=== PATIENT | female | born 1950 | race Caucasian/White ===

== ENCOUNTER → 2017-03-24 14:19 | Outpatient (CLI) | payer MEDICARE ==
[2015-12-29 11:03] VITALS: BMI 32.3
[~2017-03-24 14:19] MED LIST: ABILIFY PO; CELEBREX200 MG PO; CELEXA20 MG PO; CLARINEX5 MG PO; DIOVAN160 MG PO; GABAPENTIN100 MG PO; HCTZ25 MG PO; LEVOTHROID88 MCG PO; MOBIC7.5 MG PO; NEXIUM40 MG PO; NORVASC5 MG PO; TRICOR145 MG PO; TYLENOL W/CODEI1 TAB PO; VISTARIL50 MG PO; VITAMIN D50000 UNIT PO
== END | disposition home or self-care (01) ==
LOC: D.MAMMO 02-18 16:00
DX: Z12.31 Encounter for screening mammogram for malignant neoplasm of breast (principal)

== ENCOUNTER → 2018-03-17 12:32 | Outpatient (CLI) | payer MEDICARE ==
[2015-12-29 11:03] VITALS: BMI 32.3
[~2018-03-17 12:32] MED LIST changes: +PROTONIX40 MG PO; +VALIUM 2 MG TAB2 MG PO
== END | disposition home or self-care (01) ==
LOC: D.HCCARDIO 12:30
DX: I20.9 Angina pectoris, unspecified (principal)

== ENCOUNTER 2018-04-02 06:53 | Outpatient (CLI) | payer MEDICARE ==
[~2018-04-02] VITALS: Ht 165.1 cm; Wt 88.6 kg
--- NOTE | ~2018-04-02 | HEMODYNAMI ---
PATIENT:YAMIL CHANDRA MEDICAL RECORD: [id number] : 46 LOCATION:[facility] ADMISSION DATE: 04/02/18 Generatedon:04/02/20189:35 Patient name: YAMIL BAGLEY Patient #: [id number] SSN: : 1950 Date of study: 04/02/2018 Page: Of Hemodynamic Procedure Report Patient Data Patient Demographics Procedure consent was obtained First Name: YAMIL Gender: Female Last Name: MAYI GILL : 1950 VINCENT Age: 67 year(s) Patient #: [id number] Race: Unknown Additional ID: [id number] Contact details [address]: [address] [place] [address] State: [place] City: [place] Zip code: [address] Past Medical History Allergies: No known allergies Admission Admission Data Admission Date: 04/02/2018 Admission Time: 6:53 Procedure Procedure Types Cath Procedure Diagnostic Procedure LHC LHC w/Coronaries Sedation Charges Moderate Sedation up to 15 minutes Procedure Description Procedure Date Procedure Date: 04/02/2018 Procedure Start Time: 9:20 Procedure End Time: 9:35 Procedure Staff Name Function Ari Bullock MD Performing Physician Tamara Mcdonough RT Monitor Mari Cook RN Nurse Rickie Merlos RT Scrub Procedure Data Cath Procedure Fluoroscopy Diagnostic fluoroscopy Total fluoroscopy Time: 2.5 time: 2.5 min min Diagnostic fluoroscopy Total fluoroscopy dose: 452 dose: 452 mGy mGy Contrast Material Contrast Material Type Amount (ml) Isovue 300 53 Entry Location Entry Primary Successful Side Size Upsize Upsize Entry Closure Succes sful Closure Location (Fr) 1 (Fr) 2 (Fr) Remarks Device Remarks Femoral Left 5 Fr Exoseal artery Estimated blood loss: 5 ml Diagnostic catheters Device Type Used For End Catheter Placement MULTIPACK JL 4.0 5Fr Left Coronary catheter Angiography DIAGNOSTIC JL 5 5Fr Left Coronary catheter ([id number]) Angiography MULTIPACK 3DRC 5Fr Right Coronary catheter Angiography MULTIPACK Pigtail 5 Fr LV Angiography catheter Procedure Complications No complications Procedure Medications Medication Administration Route Dosage 0.9% NaCl I.V. 100 ml/hr Oxygen etCO2 Nasal cannula 2 l/min Lidocaine 2% added to field 20 Heparin Flush Bag added to field 2 bags (1000units/500ml NS) Versed I.V. 2 mg Fentanyl I.V. 50 mcg Versed I.V. 2 mg Fentanyl I.V. 50 mcg Versed I.V. 2 mg Fentanyl I.V. 50 mcg Hemodynamics Rest Heart Rate: 68 (bpm) Pressure Samples Time Site Value (mmHg) Purpose Heart Use Rate(bpm) 9:30 LV 128/11,23 EDP 58 9:31 AO 126/72(96) Pullback 75 9:31 LV 128/7,19 Pullback 75 Gradients Valve Time Site 1 Site 2 Mean SEP/DFP Peak To Heart Use (mmHg) (sec/min) Peak Rate (mmHg) (bpm) Aortic 9:31 LV AO 12 19 2 75 128/7,19 126/72(96) Calculations Valve P-P Mean Valve Index Valve Source Name Gradient Area Flow (cm2) Aortic 2 12 2 12 Snapshots Pre Cath Intra NCS Post Cath Vital Signs Time Heart Resp SPO2 etCO2 NIBP (mmHg) Rhythm Pain Sedation Rate (ipm) (%) (mmHg) Status Level (bpm) 9:08:58 73 16 97 33.9 166/87(134) NSR 0 (11) 10(A) , No pain 9:13:22 64 16 96 37.6 139/87(100) NSR 0 (11) 10(A) , No pain 9:17:46 63 17 97 36.9 132/76(92) NSR 0 (11) 10(A) , No pain 9:22:10 64 16 97 34.6 129/81(107) NSR 0 (11) 10(A) , No pain 9:26:33 68 54 98 30 128/80(99) NSR 0 (11) 10(A) , No pain 9:30:53 71 62 98 41.4 126/80(98) NSR 0 (11) 10(A) , No pain 9:35:15 73 29 94 36.9 130/78(107) NSR 0 (11) 10(A) , No pain Medications Time Medication Route Dose Verified Delivered Reason Notes Effe ctiveness by by 9:07:37 0.9% NaCl I.V. 100 Ari Mari used for ml/hr Kobe Cook collar setter 9:07:44 Oxygen etCO2 2 Ari Mari used for Nasal l/min Kobe Cook procedure cannula RN 9:07:50 Lidocaine 2% added 20ml Ari Ari for local to vial Kobe Bullock MD anesthetic field 9:07:55 Heparin Flush added 2 Ari Ari used for Bag to bags Kobe Bullock MD procedure (1000units/500ml field NS) 9:16:55 Versed I.V. 2 mg Ari Mari for Kobe Cook sedation RN 9:17:01 Fentanyl I.V. 50 Ari Mari for mcg Kobe Cook sedation RN 9:23:25 Versed I.V. 2 mg Ari Mari for Kobe Cook sedation RN 9:23:29 Fentanyl I.V. 50 Ari Mari for mcg Kobe Cook sedation RN 9:28:25 Versed I.V. 2 mg Ari Mari for Kobe Cook sedation RN 9:28:39 Fentanyl I.V. 50 Ari Mari for mcg Kobe Cook sedation social economist Log Time Note 8:49:26 Time tracking: Regular hours (M-F 7:00 - 5:00) 8:49:30 Plan of Care:Hemodynamics will remain stable., Cardiac rhythm will remain stable., Comfort level will be maintained., Respiratory function will remain adequate., Patient/ family verbilizes understanding of procedure., Procedure tolerated without complication., Recovers from procedure without complications.. 8:54:44 Mari Cook RN sent for patient. Start room use. 9:01:27 Patient received from Pre/Post Procedure Room to CCL 1 Alert and oriented. Tansferred to table in Supine position. 9:01:28 Warm blankets applied, and alhaji hugger turned on for patient comfort. 9:01:29 Correct patient and procedure confirmed by team. 9:01:30 Signed procedure consent form obtained from patient. 9:01:31 ECG and BP/O2 sat monitors applied to patient. 9:01:32 Full Disclosure recording started 9:07:29 Vital chart was started 9:07:37 0.9% NaCl 100 ml/hr I.V. was administered by Mari Cook RN; used for procedure; 9:07:44 Oxygen 2 l/min etCO2 Nasal cannula was administered by Mari Cook RN; used for procedure; 9:07:50 Lidocaine 2% 20ml vial added to field was administered by Ari Bullock MD; for local anesthetic; 9:07:55 Heparin Flush Bag (1000units/500ml NS) 2 bags added to field was administered by Ari Bullock MD; used for procedure; 9:09:19 Baseline sample Acquired. 9:12:19 Baseline sample Acquired. 9:12:22 Rhythm: sinus rhythm 9:12:39 H&P Date Dictated: 03/06/2018 Within 30 days and on chart., H&P Addendum completed by physician on day of procedure. (MUST COMPLETE FOR ALL OUTPATIENTS). 9:12:41 Pre-procedure instructions explained to patient. 9:12:41 Pre-op teaching completed and patient verbalized understanding. 9:12:43 Family in patients room. 9:12:45 Patient NPO since Midnight. 9:12:51 Patient allergic to No known allergies 9:12:53 Is the patient allergic to Iodine/contrast media? No. 9:12:56 Is patient on blood thinner?No 9:14:13 Patient diabetic? No. 9:14:17 Previous problem with sedation/anesthesia? No ? 9:14:18 Snore? Yes 9:14:19 Sleep apnea? Yes 9:14:20 Deviated septum? No 9:14:22 Opens mouth fully? Yes 9:14:48 Sticks out tongue? Yes 9:14:50 Airway obstruction? No ? 9:14:52 Dentures? No ? 9:14:58 Pre procedure: left dorsailis pedis pulse 2+ Normal; easily identifiable; not easily obliterated 9:15:01 Patient pain scale 0/10 ?. 9:15:06 IV patent on arrival in left forearm with 0.9% NaCl at O. 9:15:08 Lab results completed and on chart. 9:15:12 Left groin area was prepped with chlora-prep and draped in sterile fashion 9:15:13 Alarms reviewed by R. N. 9:15:13 Sharps counted by scrub and verified by R.N. 9:16:08 Final Timeout: patient, procedure, and site verified with staff and physician. All members of the team are in agreement. 9:16:10 Left groin site verified by team. 9:16:13 Fire Safety Assessment: A--An alcohol-based skin anteseptic being used preoperatively., C--Open oxygen or nitrous oxide is being used., D--An ESU, laser, or fiber-optic light is being used. 9:16:15 Physical assessment completed. ASA score P 2 - A patient with mild systemic disease as per Ari Bullock MD. 9:16:18 Sedation plan: IV Moderate Sedation Medication:Versed, Fentanyl 9:16:55 Versed 2 mg I.V. was administered by Mari Cook RN; for sedation; 9:17:01 Fentanyl 50 mcg I.V. was administered by Mari Cook RN; for sedation; 9:19:45 Use device set Femoral Dx 9:19:46 ACIST Syringe (37980) opened to sterile field. 9:19:47 Bag Decanter (2002S) opened to sterile field. 9:19:47 Medline Cath Pack ([id number]) opened to sterile field. 9:19:48 DIAGNOSTIC WIRE .035 260cm J wire (049202) opened to sterile field. 9:19:49 ACIST Hand Control (99470) opened to sterile field. 9:19:49 ACIST Manifold (95251) opened to sterile field. 9:19:50 DIAGNOSTIC Multipack 5Fr catheter set ([id number]) opened to sterile field. 9:19:50 Tegaderm 4 x 4 (1626W) opened to sterile field. 9:19:54 SHEATH 5FR [place] (MLY163) opened to sterile field. 9:20:00 Procedure started. 9:20:04 Local anesthetic to left femerol artery with Lidocaine 2% by Ari Bullock MD.INITIAL ACCESS ONLY 9:21:00 A 5 Fr sheath was inserted into the Left Femoral artery 9:23:13 A MULTIPACK JL 4.0 5Fr catheter was advanced over the wire and used for Left Coronary Angiography. REMOVED, UNABLE TO CANNULATE 9:23:25 Versed 2 mg I.V. was administered by Mari Cook RN; for sedation; 9:23:29 Fentanyl 50 mcg I.V. was administered by Mari Joey RN; for sedation; 9:26:43 A DIAGNOSTIC JL 5 5Fr catheter ([id number]) was advanced over the wire and used for Left Coronary Angiography. 9:27:31 Catheter removed. 9:28:25 Versed 2 mg I.V. was administered by Mari Cook RN; for sedation; 9::37 A MULTIPACK 3DRC 5Fr catheter was advanced over the wire and used for Right Coronary Angiography. 9:28:39 Fentanyl 50 mcg I.V. was administered by Mari Cook RN; for sedation; 9::53 Catheter removed. 9:29:44 A MULTIPACK Pigtail 5 Fr catheter was advanced over the wire and used for LV Angiography. 9:30:33 LV gram done using AREVALO 9:30:34 LV hemodynamics recorded. 9::37 Injector settings: Ml/sec: 10, Volume: 20, 9:30:43 EF : 55 % 9:31:01 EXOSEAL 5Fr (EX500) opened to sterile field. 9:31:03 Catheter removed. 9:31:10 Sheath removed intact; hemostasis achieved with Exoseal to the Left Femoral artery. 9:31:23 Procedure ended.(Physican Out) 9:31:40 Fluoroscopy time 02.50 minutes. 9:31:44 Flurop Dose total: 452 9:31:44 Fluoroscopy dose: 452 mGy 9:31:48 Contrast amount:Isovue 300 53ml. 9:31:49 Sharps counted by scrub and verified by R.N. 9:31:51 Insertion/operative site no bleeding no hematoma. 9:31:54 Post-op/insertion site Left Femoral artery dressed using a 4 x 4 and Tegaderm. 9:31:58 Post left femerol artery:stable, clean and dry 9:32:00 Post Procedure Pulses reassessed and unchanged 9:32:03 Post-procedure physical assessment completed. ASA score P 2 - A patient with mild systemic disease as per Ari Bullock MD. 9:32:05 Post procedure rhythm: unchanged. 9:32:16 Estimated blood loss: 5 ml 9:32:17 Post procedure instruction explained to patient.Patient verbalizes understanding. 9:32:18 Patient needs reinforcement of post procedure teaching. 9:32:42 Procedure type changed to Cath procedure, Diagnostic procedure, LHC, LHC w/Coronaries, Sedation Charges, Moderate Sedation up to 15 minutes 9:32:48 Procedure Complication : No complications 9:32:50 See physician's report for complete and final results. 9:33:10 Procedure and supply charges have been captured, reviewed, submitted and are correct. 9:35:21 Vital chart was stopped 9:35:23 Report given to Pre/Post Procedure Room. 9:35:26 Patient transfered to Pre/Post Procedure Room with Stretcher. 9:35:33 Procedure ended. 9:35:33 Full Disclosure recording stopped 9:35:37 End room use (Document Last) Device Usage Item Name Manufacture Quantity Catalog Hospital Part Current Minimal L ot# / Number Charge Number Stock Stock Serial# Code ACIST Acist 1 68632 667307 427577 770267 20 Syringe Medical (58974) Systems Inc Bag Microtek 1 564439 13381 689310 5 Decanter Medical Inc. () Medline Medline 1 [id number] 334405 90387 077500 5 Cath Pack ([id number]) DIAGNOSTIC [place] 1 292417 056547 701940 516022 30 WIRE .035 260cm J wire (738940) ACIST Hand Acist 1 01455 174009 545220 271496 5 Control Medical (05389) Systems Inc ACIST Acist 1 16386 951089 343686 553274 5 Manifold Medical (53328) Systems Inc DIAGNOSTIC Cardinal 1 [id number] 388198 49302 461268 30 Multipack Health 5Fr catheter set ([id number]) Tegaderm 4 3M 1 1626W 450384 363375 654631 5 x 4 (1626W) SHEATH 5FR [place]umo 1 PBS074 727994 142037 936901 5 [place] (BYE579) MULTIPACK Cardinal 1 429870 5 JL 4.0 5Fr Health catheter DIAGNOSTIC Cardinal 1 [id number] 575800 765587 753278 5 JL 5 5Fr Health catheter (395155I) MULTIPACK Cardinal 1 261644 5 3DRC 5Fr Health catheter MULTIPACK Cardinal 1 357117 5 Pigtail 5 Health Fr catheter EXOSEAL 5Fr Cardinal 1 EX500 189699 177920 307977 10 (EX500) Health Signature Audit Thayer Stage Time Signature Unsigned Intra-Procedure 04/02/2018 Tamara 9:35:52 AM Counts RT(R) Signatures Monitor : Tamara Signature : Counts RT Date : Time : [address] [place] [address]
[~2018-04-02 06:53] MED LIST changes: -PROTONIX40 MG PO; -VALIUM 2 MG TAB2 MG PO
[2018-04-02] MEDS ORDERED: VALIUM 2 MG TAB2 MG PO (07:40)
[2018-04-02] MEDS ORDERED: PROTONIX40 MG PO (07:40)
[2018-04-02] MEDS ORDERED: CELEBREX200 MG PO (07:42)
[2018-04-02 07:51] VITALS: BP 130/69; Ht 165.1 cm; Wt 88.6 kg
[2018-04-02 08:09] LABS: BASOPHILS 0.5 % (0-2); EOSINOPHILS 0.6 % (0-7); HEMATOCRIT 33.5 % (36.0-48.0); HEMOGLOBIN 10.6 g/dL (12-16); IMMATURE GRANULOCYTES 0.3 % (0-5); LYMPHOCYTES 32.6 % (15-50); MCH 26.6 pg (26.0-34.0); MCHC 31.6 g/dL (31.0-37.0); MEAN PLATELET VOLUME 10.1 fL (7.4-10.4); MONOCYTES 9.6 % (2-11); NEUTROPHILS 56.4 % (40-80); PLATELET COUNT 278 10x3/uL (130-400); RBC 3.99 10x6/uL (4.00-5.40); RDW 16.1 % (11.5-14.5); WBC 6.3 10x3/uL (4.8-10.8)
[2018-04-02 08:26] LABS: CALCIUM 8.6 mg/dL (8.5-10.1); CARBON DIOXIDE 26.9 mmol/L (21.0-32.0); CREATININE - SERUM 0.9 mg/dL (0.6-1.3); POTASSIUM - SERUM 3.9 mmol/L (3.5-5.1)
--- NOTE | 2018-04-02 10:00 | NUR ---
2L NC, NO RESP DISTRESS. LEFT GROIN 5F EXOSEAL CDI, NO BLEEDING OR HEMATOMA NOTED. NO C/O PAIN OR NAUSEA. VSS. FAMILY AT BEDSIDE, CALL LIGHT WITHIN REACH.
--- NOTE | 2018-04-02 11:05 | NUR ---
HOB ELEVATED 30 DEGREES. LEFT GROIN 5F EXOSEAL CDI, NO BLEEDING OR HEMATOMA NOTED. SIPPING ON DRINK AND EATING SANDWICH WITH NO C/O NAUSEA. VSS. WILL CONTINUE TO MONITOR.
--- NOTE | 2018-04-02 11:30 | NUR ---
LEFT PIV D/C'D WITH CATHETER INTACT, BAND AID TO SITE. UP TO BEDSIDE TO GET DRESSED. AMBULATED TO RESTROOM.
--- NOTE | 2018-04-02 11:38 | NUR ---
DISCHARGE INSTRUCTIONS GIVEN, VERBALIZED UNDERSTANDING.
--- NOTE | 2018-04-02 11:45 | NUR ---
TAKEN OUT VIA WHEELCHAIR BY [facility] [employer] ACCOUNT DIRECT[employer]. LEFT FACILITY WITH FAMILY AND ALL PERSONAL BELONGINGS.
== END 2018-04-02 11:45 | disposition home or self-care (01) ==
LOC: D.CATH 06:53
PROVIDERS: Internal Medicine Cardiovascular Disease
DX: I20.9 Angina pectoris, unspecified (principal); Z01.812 Encounter for preprocedural laboratory examination

== ENCOUNTER → 2020-04-13 13:48 | Outpatient (CLI) | payer MEDICARE ==
[2018-04-02 07:51] VITALS: BMI 32.5
[~2020-04-13 13:48] MED LIST changes: +PROTONIX40 MG PO; +VALIUM 2 MG TAB2 MG PO
== END | disposition home or self-care (01) ==
LOC: D.HCCECHO 13:48
PROVIDERS: ATTEND Internal Medicine Cardiovascular Disease
DX: R06.00 Dyspnea, unspecified (principal)